=== PATIENT | male | born 1985 | race Caucasian/White ===

== ENCOUNTER 2018-02-21 03:40 | Emergency (ER) | payer MEDICARE, OTHER ==
[2018-02-21] MEDS ORDERED: CEPHALEXIN 250 MG CAPSULE PO ONE (03:59)
[2018-02-21] MEDS ORDERED: IBUPROFEN 200 MG TABLET PO ONE (04:00)
--- NOTE | 2018-02-21 04:08 | ED Physician Documentation ---
Ear Complaints - HISTORIAN Historian: patient, parent - HPI Stated Complaint: Left neck/ear swollen Chief Complaint: Ear Complaints Additional Information: pt under care ent in [place] for "ear fungus infection' OF LT EAR CANAL. now he has a 4 zx6 cm abscess area behind the ear causing ear pain Timing: worse Location of Pain: L ear Severity: moderate Associated Symptoms: dull pain, aching. denies: fever, chills, hearing loss - ROS CONST: no problems CVS/RESP: none. denies: shortness of breath, palpitations GI/: denies: nausea, vomiting MS/SKIN/LYMPH: none All Systems -: Yes - PAST HX Past History: none Allergies/Adverse Reactions: Allergies Allergy/AdvReac Type Severity Reaction Status Date / Time No Known Allergies Allergy Verified 02/21/18 03:52 Home Medications: Ambulatory Orders Medication Instructions Recorded Acetic Acid/Hydrocortisone 10 ml OT BID 02/21/18 [Acetasol Hc Ear Drops] Cephalexin [Keflex] 500 mg PO QID #40 capsule 02/21/18 - SOCIAL HX Smoking History: greater than 1 pack/day Alcohol Use: heavy (on week ends) Drug Use: none - FAMILY HX Family History: No - VITAL SIGNS Vital Signs: Vital Signs Temp Pulse Resp BP Pulse Ox 99.1 F 74 16 106/42 92 02/21/18 03:50 02/21/18 03:50 02/21/18 03:50 02/21/18 03:50 02/21/18 03:50 - REVIEWED ASSESSMENTS Nursing Assessment Reviewed: Yes Vitals Reviewed: Yes Progress - Progress Progress: ear tx w/ peroxide then alcohol then betadine w/coton plug plus the keflex and ibu and pt to see ENT tomorrow ED Results Lab/Radiology - Orders Orders: ED Orders Category Date Time Status Cephalexin [Keflex] Med 02/21/18 03:59 Once 1,000 mg PO NOW ONE Ibuprofen [Advil] Med 02/21/18 04:00 Once 600 mg PO NOW ONE Ear Complaint Physical Exam - EXAM General Appearance: moderate distress Ear: auricle nml, seo analyst.canal nml, erythema, mastoid tenderness, mastoid swelling, material in canal, cerumen (like but whitish). No: pain w movement of auricl, swelling of canal Head/Neck: atraumatic, stiff neck Resp/CVS: chest non-tender, breath sounds nml, heart sounds nml, lungs clear, reg. rate & rhythm Abdomen: non-tender Skin: nml color, no skin rash. No: pallor, cyanosis, skin rash, ecchymosis Neuro/Psych: oriented x3, depressed mood/affect Discharge Clincal Impression: otitis and mastoiditis, fungal infection ear canal Prescriptions: Cephalexin [Keflex] 500 mg PO QID #40 capsule Referrals: Primary Doctor,No [Primary Care Provider] - 2 Days Condition: Fair Disposition: HOME, SELF-CARE Decision to Admit: NO Decision Time: 04:48
[2018-02-21] MEDS ORDERED: Lidocaine 1% 5ml(IM or SUTURE)(PAIN CLINIC) ONE (04:54)
[2018-02-21 05:15] VITALS: BP 106/56
[2018-02-21] MEDS ORDERED: Lidocaine 1% 5ml(IM or SUTURE)(PAIN CLINIC) IJ ONE (05:17)
== END 2018-02-21 05:05 | disposition home or self-care (01) ==
LOC: ED 03:40
DX: H66.90 Otitis media, unspecified, unspecified ear (principal); H70.90 Unspecified mastoiditis, unspecified ear; B37.84 Candidal otitis externa
CPT/HCPCS: 96372; 99283; J0696